=== PATIENT | female | born 2000 | race Caucasian/White ===

== ENCOUNTER 2020-10-19 01:39 | Emergency (ER) | payer MEDICAID, OTHER ==
[~2020-10-19] VITALS: Ht 167.6 cm; Wt 59.0 kg
[2020-10-19 02:25] LABS: Basophils # (auto) 0 10 ^3/uL (0-0.2); Basophils % (auto) 0.5 % (0.0-2.0); Eosinophils # (auto) 0.2 10 ^3/uL (0-0.8); Eosinophils % (auto) 2.5 % (0.0-7.0); Hematocrit 34.8 % (36.0-46.0); Hemoglobin 12.2 g/dL (12.2-16.2); Lymphocytes # (auto) 1.8 10 ^3/uL (0.4-5.4); Lymphocytes % (auto) 24.2 % (10.0-50.0); Mean Corpuscular Hemoglobin 30.6 pg (28.0-32.0); Mean Corpuscular Hgb Conc. 34.9 g/dL (32.0-36.0); Mean Corpuscular Volume 87.7 fL (80.0-100.0); Monocytes # (auto) 0.4 10 ^3/uL (0-1.3); Monocytes % (auto) 5.2 % (0.0-12.0); Neutrophils # (auto) 5.1 10 ^3/uL (1.6-8.6); Neutrophils % (auto) 67.6 % (37.0-80.0); Red Blood Cells 3.97 10^6/uL (4.0-5.20); Red Cell Distribution Width 13.7 % (11.8-14.3); White Blood Cell 7.6 10^3/uL (4.4-10.8)
[2020-10-19 02:46] LABS: Albumin 3.5 g/dL (3.4-5.0); BUN/Creatinine Ratio 9.3; Calcium 8.4 mg/dL (8.5-10.1); Potassium 3.5 mmol/L (3.5-5.1)
[2020-10-19 02:49] LABS: Bilirubin, Total 0.4 mg/dL (0.2-1.0); Total Protein 6.7 g/dL (6.4-8.2)
[2020-10-19] MEDS ORDERED: SODIUM CHLORIDE 0.9% 1,000 ML IV ONE ×2 (07:45→08:45)
[2020-10-19 07:48] VITALS: BP 109/60
[2020-10-19 08:07] LABS: Urine Blood 1+ /uL (Negative); Urine Mucus FEW (None Seen); Urine Specific Gravity 1.013 (1.001-1.035); Urine WBC 54 /hpf (0 - 5)
[2020-10-19 08:09] LABS: Urine Bacteria MOD /hpf (None Seen)
[2020-10-19 08:23] LABS: Amphetamine Screen, Urine NEGATIVE (NEGATIVE); Barbiturate Scree,Urine NEGATIVE (NEGATIVE); Benzodiazephine Screen, Urine NEGATIVE (NEGATIVE); Cannabinoid Screen, Urine NEGATIVE (NEGATIVE); Cocaine Screen, Urine NEGATIVE (NEGATIVE); Opiate Scree,Urine NEGATIVE (NEGATIVE); Phencyclidine Screen, Urine NEGATIVE (NEGATIVE)
[2020-10-19] MEDS ORDERED: ONDANSETRON HCL 4 MG/2 ML VIAL IV ONE (08:45)
[2020-10-19] MEDS ORDERED: cefTRIAXone 1GM/50ML D5W 50 ML IV ONE (08:45)
== END 2020-10-19 09:26 | disposition home or self-care (01) ==
LOC: ER 01:39
DX: O23.41 Unspecified infection of urinary tract in pregnancy, first trimester (principal); E86.0 Dehydration; Z88.0 Allergy status to penicillin; Z3A.12 12 weeks gestation of pregnancy
CPT/HCPCS: 36415; 80053; 80307; 81001; 81025; 84443; 85025; 96361; 96365; 96375; 99284; J0696; J2405; J7030

== ENCOUNTER 2021-09-03 23:58 | Emergency (ER) | payer MEDICAID ==
[~2021-09-03] VITALS: Ht 167.6 cm; Wt 78.5 kg
[2021-09-03 23:58] VITALS: BP 100/61
[2021-09-04 01:41] LABS: Urine Bacteria NONE SEEN /hpf (None Seen); Urine Blood Negative /uL (Negative); Urine Mucus FEW (None Seen); Urine Specific Gravity 1.027 (1.001-1.035); Urine WBC 3 /hpf (0 - 5)
== END 2021-09-04 02:56 | disposition home or self-care (01) ==
LOC: ER 23:58
DX: R10.30 Lower abdominal pain, unspecified (principal); Z88.0 Allergy status to penicillin
CPT/HCPCS: 81001